=== PATIENT | female | born 1970 ===

== ENCOUNTER 2017-01-26 22:43 | Emergency (ER) | payer SELFPAY ==
[2017-01-27] MEDS ORDERED: IPRATROPIUM (NEB) 0.5 MG/2.5 ML AMP ONE (00:21)
== END 2017-01-26 23:01 | disposition left against medical advice (07) ==
LOC: E/R 22:43
DX: Z53.21 Procedure and treatment not carried out due to patient leaving prior to being seen by health care provider (principal)